=== PATIENT | male | born 1935 | race Caucasian/White ===

== ENCOUNTER 2018-05-30 03:35 | Emergency (ER) | payer MEDICARE, BC ==
[~2018-05-30] VITALS: Ht 180.3 cm; Wt 77.1 kg
[~2018-05-30 03:35] MED LIST: ADVAIR; NEXIUM; SPIRIVA; Z.0.ADVAIR 100-501 E; Z.0.NEXIUM40 M1; Z.0.PROSCAR5 MG PO
--- OUTSIDE RECORDS SUMMARY | 2018-05-30 03:39 | XMS REPORT | Summary of Care ---
Author Organization Unknown Address Unknown Phone Unavailable Encounter Dates Location Diagnoses Discharge Providers Disposition 08/28/2013 [facility] Chente Cortez [facility] Gary Morton 08/28/2013 [id number] [address] Reason for Visit PROSTATE CANCER Problem List No data available for this section Allergies, Adverse Reactions, Alerts Status Substance Reaction Severity Active NKDA Medications No data available for this section Medications Administered During Your Visit No data available for this section Immunizations Vaccine Date Refusal Reason pneumococcal 23-valent vaccine1 04/19/2009 pneumococcal 23-valent vaccine 04/19/2009 1Result Comment: previously given at 1221, duplicate order
--- OUTSIDE RECORDS SUMMARY | 2018-05-30 03:39 | XMS REPORT | Continuity of Care Document ---
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 07/08/2013 [facility] [place] 591 - HYDRONEPHROSIS Active 10/24/[facility] NEOPL [facility]OSTATE Active [facility] Medications Medication Details Route Status Patient Instructions Ordering Provider Order Date Source pneumococcal 23-valent vaccine 0.5 ml, Route: IM, Start date: 04/19/09 9:00:00 IM No Longer Active SYSTEM [facility]19/2009 [facility] Allergies, Adverse Reactions, Alerts Substance Category Reaction Severity Reaction type Status Date Reported Comments Source Immunizations Immunization Date Given Site Status Last Updated Comments Source pneumococcal 23-valent vaccine<sup>1</sup> 04/19/2009 Not Given Hail 1Result Comment: previously given at 1221, duplicate order [facility]ent [facility]<sup>1</sup> 04/19/2009 Not Given Hail 1Result Comment: previously given at 1221, duplicate order [facility] pneumococcal 23-valent vaccine 04/19/2009 completed Hail [facility]-valent [facility] 04/19/2009 Left Arm completed Hail [facility], MICHAEL Ramos Results Order Name Results Value Reference Range Date Interpretation Comments Source Spine lumbar 2 or 3 views DX Spine lumbar 2 or 3 views DX EXAM: Spine lumbar 2 or 3 views DX HISTORY: - low back pain COMPARISON: None AP and lateral views of the lumbar spine. FINDINGS: There is slight anterior wedging of L1 and L2. Minimal retrolisthesis of L4 on L5, L2 on L3 and L3 on L4. Prominent lateral osteophyte formation at L2-3. Prominent anterior osteophyte formation at L4-5 with smaller osteophytes elsewhere. Mild lumbosacral facet arthropathy. IMPRESSION: Degenerative change of the lumbar spine as described above. Slight L1 and L2 anterior vertebral body height loss. 02/06/2018 - - Read by: Kraig Genao MD Dictated Date/time: 02/06/18 13:39 Electronically Signed by: Kraig Genao MD 02/06/18 13:43 FINAL REPORT MICHAEL Ramos Abdomen complete US Abdomen complete US EXAM: Abdomen ultrasound. CLINICAL HX: R10.11 Right upper quadrant pain - R10.11 Right upper quadrant pain. Age: 81 years. Gender: Male. TECHNIQUE: Grayscale and Doppler sonogram of the abdomen. COMPARISON: Renal ultrasound: 05/03/2012. FINDINGS: Midline structures: -- Pancreas: Visualized portion is unremarkable. -- Aorta: Atherosclerosis. -- IVC: Visualized portion is unremarkable. Liver: -- Parenchyma: Homogenous echotexture. -- Length: 13.1 cm. -- Other: None. Main portal vein: -- Diameter: 0.9 cm. -- Flow: Normal directional flow. Gallbladder: -- Intraluminal gallstones: Negative. -- Wall: No thickening. -- Sonographic Mott sign: Negative. -- Other: None. Common bile duct: -- Diameter: 0.4 cm. Right kidney: -- Length: 8.9 cm. -- Hydronephrosis: Negative. -- Other: None. Left kidney: -- Length: 9 cm. -- Hydronephrosis: Negative. -- Other: None. Spleen: -- Measures 9.4 cm. -- Other: None. Other: Mildly limited due to patient's body habitus, per technologist notes. IMPRESSION: 1. Unremarkable abdominal ultrasound. 04/14/2017 - - Read by: Miles Weinberg MD Dictated Date/time: 04/14/17 11:21 Electronically Signed by: Miles Weinberg MD 04/14/17 13:57 FINAL REPORT MICHAEL Ramos Vital Signs Vital Sign Value Date Comments Source Encounters Location Location Details Encounter Type Encounter Number Reason For Visit Attending Provider ADM Date DC Date Status Source [facility] Outpatient [id number] PROSTATE CANCER JUANITORIVKA LAMB 08/24/2011 Active [facility] Outpatient [id number] PROSTATE CANCER JUANITO LAMB 08/22/2012 08/22/2012 Active [facility] Outpatient [id number] _[id number] Gary Morton 08/28/2013 08/29/2013 [facility] [place] [facility] [id number] Gopi James 04/14/2017 04/15/2017 [facility] [place] [id number] 591 - HYDRONEPHROSIS GARY MORTON Cancel [facility] [place] Procedures Procedure Code Date Perfomer Comments Source
--- OUTSIDE RECORDS SUMMARY | 2018-05-30 03:39 | XMS REPORT | CCD ---
Author Author Auto Generated Organization [facility] Address Unknown Phone Unavailable Care Team Providers Care Arresting Gear Operator Name Role Phone Gary Morton RP Chente Cortez CP Allergies, Adverse Reactions, Alerts Substance Reaction Status NKDA Active Medications Medication Instructions Start Date End Date Status pneumococcal 0.5 ml, Route: IM, Start date: 04/19/2009 04/19/2009 Completed 23-valent vaccine 04/19/09 9:00:00 pneumococcal 0.5 ml, Route: IM, Drug Form: INJ, 04/19/2009 04/19/2009 Discontinued 23-valent vaccine ONCALL, Start date: 04/19/09 9:00:00, Duration: 1 doses or times Immunizations Vaccine Date Status pneumococcal 23-valent vaccine 04/19/2009 Auth (Verified) pneumococcal 23-valent vaccine1 04/19/2009 Not Done 1Result Comment: previously given at 1221, duplicate order
--- OUTSIDE RECORDS SUMMARY | 2018-05-30 03:39 | XMS REPORT | CCD ---
Author Author Auto Generated Organization [facility] [place] Address Unknown Phone Unavailable Care Team Providers Care Senior Digital Designer Name Role Phone Gary Morton CP Allergies, Adverse Reactions, Alerts Substance Reaction [...]
--- OUTSIDE RECORDS SUMMARY | 2018-05-30 03:39 | XMS REPORT | CCD ---
Author Author Auto Generated Organization [facility] [place] Address Unknown Phone Unavailable Care Team Providers Care Paper Coater Name Role Phone Gary Morton CP Allergies, [...]
--- OUTSIDE RECORDS SUMMARY | 2018-05-30 03:39 | XMS REPORT | Summary of Care ---
Author Author [facility] [place] Organization [facility] [place] Address Unknown Phone Unavailable Encounter HQ Encntr_alicachorro(FIN) [id number] Date(s): 04/14/17 - 04/14/17 [facility] [place] [address] [place] [phone] Discharge Disposition: Home or Self Care Attending Physician: Gopi Carrasco MD Vital Signs No data available for this section Problem List No data available for this section Allergies, Adverse Reactions, Alerts Substance Reaction Severity Status NKDA Active Medications No data available for this section Results No data available for this section Immunizations Given and Recorded Vaccine Date Status Refusal Reason pneumococcal 23-valent vaccine 04/19/09 Given Procedures No data available for this section Social History No data available for this section Assessment and Plan No data available for this section
[2018-05-30 04:01] LABS: BASOPHILS # (AUTO) 0.1 (0.0-0.1); BASOPHILS % 0.9 % (0.0-1.0); EOSINOPHILS # (AUTO) 0.5 (0.0-0.4); LYMPHOCYTES # (AUTO) 1.6 (1.0-3.2); MEAN CORPUSCULAR HEMOGLOBIN 30.2 pg (28-32); MEAN CORPUSCULAR HGB CONC 32.4 g/dL (31-35); MONOCYTES # (AUTO) 0.4 (0.2-0.8); MONOCYTES % 6.6 % (4.4-11.3); NEUTROPHILS # (AUTO) 3.8 (2.1-6.9); NEUTROPHILS % 58.6 % (38.7-80.0); PLATELET COUNT 266 x10e3/uL (140-360); RED BLOOD COUNT 3.98 x10e6/uL (4.3-5.7)
[2018-05-30 04:08] LABS: INR 0.85; PROTHROMBIN TIME 12.4 seconds (11.9-14.5)
[2018-05-30 04:09] LABS: PARTIAL THROMBOPLASTIN TIME 30.4 seconds (23.8-35.5)
[2018-05-30 04:19] LABS: ALBUMIN 3.6 g/dL (3.5-5.0); ALBUMIN/GLOBULIN RATIO 1.2 (0.8-2.0); ANION GAP 16.2 mmol/L (8-16); CALCIUM 9.5 mg/dL (8.4-10.2); CREATININE, SERUM 2.34 mg/dL (0.72-1.25); POTASSIUM 4.2 mmol/L (3.5-5.1)
[2018-05-30 04:25] LABS: CLARITY,URINE CLOUDY (CLEAR); COLOR,URINE YELLOW (YELLOW); LEUKOCYTE ESTERASE ,URINE 2+ (NEGATIVE)
[2018-05-30 04:26] LABS: BILIRUBIN,URINE NEGATIVE (NEGATIVE); KETONES,URINE NEGATIVE (NEGATIVE); NITRITE,URINE POSITIVE (NEGATIVE); PROTEIN,URINE DIPSTICK 2+ (NEGATIVE); URINE UROBILINOGEN 0.2 mg/dL (0.2 - 1)
[2018-05-30] MEDS ORDERED: DETROL LA4 MG PO (04:31)
[2018-05-30] MEDS ORDERED: FUROSEMIDE20 MG PO (04:31)
[2018-05-30] MEDS ORDERED: ADVAIR 100-501 EACH INH (04:31)
[2018-05-30] MEDS ORDERED: PROAIR HFA INH8.5 GM INH (04:31)
[2018-05-30] MEDS ORDERED: LISINOPRIL-HCT1 EACH PO (04:31)
[2018-05-30 04:36] LABS: BACTERIA,URINE MODERATE /HPF; EPITHELIAL CELLS,URINE FEW /LPF; MUCUS,URINE MODERATE (RARE); RBC,URINE >50 /HPF (0-5); WBC,URINE (MAN) 21-50 /HPF (0-5)
== END 2018-05-30 05:20 | disposition home or self-care (01) ==
LOC: ER 03:35
DX: T83.518A Infection and inflammatory reaction due to other urinary catheter, initial encounter (principal); N30.01 Acute cystitis with hematuria; B96.20 Unspecified Escherichia coli [E. coli] as the cause of diseases classified elsewhere; B95.2 Enterococcus as the cause of diseases classified elsewhere; I12.9 Hypertensive chronic kidney disease with stage 1 through stage 4 chronic kidney disease, or unspecified chronic kidney disease; N18.9 Chronic kidney disease, unspecified; N40.1 Benign prostatic hyperplasia with lower urinary tract symptoms; R33.8 Other retention of urine
CPT/HCPCS: 36415; 80053; 81001; 85025; 85610; 85730; 87086; 87186; 99283

== ENCOUNTER 2020-04-12 08:44 | Emergency (ER) | payer MEDICARE, BC ==
[~2020-04-12] VITALS: Ht 180.3 cm; Wt 61.2 kg
[~2020-04-12 08:44] MED LIST changes: +ADVAIR 100-501 EACH INH; +DETROL LA4 MG PO; +FUROSEMIDE20 MG PO; +LISINOPRIL-HCT1 EACH PO; +PROAIR HFA INH8.5 GM INH
[2020-04-12 09:21] LABS: BASOPHILS # (AUTO) 0.1 (0.0-0.1); BASOPHILS % 1.2 % (0.0-1.0); EOSINOPHILS # (AUTO) 0.4 (0.0-0.4); EOSINOPHILS % 6.5 % (0.0-6.0); HEMATOCRIT 36.6 % (38.2-49.6); HEMOGLOBIN 11.9 g/dL (14.0-18.0); LYMPHOCYTES # (AUTO) 1.3 (1.0-3.2); LYMPHOCYTES % 19.4 % (18.0-39.1); MEAN CORPUSCULAR HEMOGLOBIN 30.2 pg (28-32); MEAN CORPUSCULAR HGB CONC 32.5 g/dL (31-35); MEAN CORPUSCULAR VOLUME 92.9 fL (81-99); MONOCYTES # (AUTO) 0.5 (0.2-0.8); MONOCYTES % 7.4 % (4.4-11.3); NEUTROPHILS # (AUTO) 4.3 (2.1-6.9); NEUTROPHILS % 64.3 % (38.7-80.0); PLATELET COUNT 260 x10e3/uL (140-360); RED BLOOD COUNT 3.94 x10e6/uL (4.3-5.7)
--- NOTE | 2020-04-12 09:23 | Emergency Department Note ---
History of Present Illnes History of Present Illness Chief Complaint: Genitourinary History of Present Illness This is a 84 year old male arrives to the ED with complaints of he maturia with blood in the Hernandez bag noted by . Patient has a chronic indwelling Hernandez secondary to prostate cancer for the past 13 years. states patient missed his last appointment to change his Hernandez catheter with his urologist.. Denies dysuria or recent UTI. Denies blunt trauma to abdomen or genitals. No urethral instrumentation. No colicky flank pain and no history of kidney stones. No other bleeding sources or bruising. No NSAID use or sickle cell disease. No receptive rectal sex or rectal instrumentation. Nonsmoker. Prostate cancer history. Historian: Patient, Family Member Arrival Mode: Car Onset (how long ago): minute(s) Radiation: Reports non-radiation Severity: mild Onset quality: sudden Chronicity: recurrent Context: Denies recent illness, Denies recent immobilization, Denies trauma/injury, Denies new medications Exacerbating factors: none Associated symptoms: Reports denies other symptoms Treatments prior to arrival: none Past Medical/Family History Physician Review I have reviewed the patient's past medical and family history. Any updates have been documented here. Past Medical History Recent Fever: No Clinical Suspicion of Infectio: No New/Unexplained Change in Ment: No Past Medical History: Hypertension, Chronic Kidney Disease Other Medical History: URINARY RETENTION Other Surgery: hernia surgery X2 Review of Systems Review of Systems Constitutional: Reports no symptoms EENTM: Reports no symptoms Cardiovascular: Reports no symptoms Respiratory: Reports no symptoms Gastrointestinal: Reports no symptoms Genitourinary: Reports as per HPI, Reports hematuria Musculoskeletal: Reports no symptoms Integumentary: Reports no symptoms Neurological: Reports no symptoms Psychological: Reports no symptoms Endocrine: Reports no symptoms Hematological/Lymphatic: Reports no symptoms Physical Exam Related Data Allergies: Coded Allergies: levofloxacin (Verified Allergy, Mild, RASH,MUSCLE ATROPHY, 03/04/11) Triage Vital Signs Vital Signs Date Time Temp Pulse Resp B/P (MAP) Pulse Ox O2 Delivery O2 Flow Rate FiO2 04/12/20 08:56 76 18 151/72 100 Room Air Vital signs reviewed: Yes (0) Physical Exam CONSTITUTIONAL Constitutional: Present well-developed, Present well-nourished HENT HENT: Present normocephalic, Present atraumatic, Present oropharynx clear/moist, Present nose normal HENT L/R: Present left ext ear normal, Present right ext ear normal EYES Eyes: Reports PERRL, Reports conjunctivae normal NECK Neck: Present ROM normal PULMONARY Pulmonary: Present effort normal, Present breath sounds normal CARDIOVASCULAR Cardiovascular: Present regular rhythm, Present heart sounds normal, Present capillary refill normal, Present normal rate GASTROINTESTINAL Abdominal: Present soft, Present nontender, Present bowel sounds normal GENITOURINARY Genitourinary: Present exam deferred SKIN Skin: Present warm, Present dry MUSCULOSKELETAL Musculoskeletal: Present ROM normal NEUROLOGICAL Neurological: Present alert, Present oriented x 3, Present no gross motor or sensory deficits PSYCHOLOGICAL Psychological: Present mood/affect normal, Present judgement normal Results Laboratory Lab results reviewed: Yes Laboratory comments Laboratory Tests Test 04/12/20 09:44 04/12/20 09:15 Urine Color Yellow (YELLOW) Urine Clarity Sl cloudy (CLEAR) Urine pH 5.5 (5 - 7) Urine Specific [place] 1.020 (1.010-1.025) Urine Protein 2+ (NEGATIVE) Urine Glucose (UA) Negative (NEGATIVE) Urine Ketones Negative (NEGATIVE) Urine Blood Large (NEGATIVE) Urine Nitrite Positive (NEGATIVE) Urine Bilirubin Negative (NEGATIVE) Urine Urobilinogen 0.2 mg/dL (0.2 - 1) Urine Leukocyte Esterase Small (NEGATIVE) White Blood Count 6.75 x10e3/uL (4.8-10.8) Red Blood Count 3.94 x10e6/uL (4.3-5.7) Hemoglobin 11.9 g/dL (14.0-18.0) Hematocrit 36.6 % (38.2-49.6) Mean Corpuscular Volume 92.9 fL (81-99) Mean Corpuscular Hemoglobin 30.2 pg (28-32) Mean Corpuscular Hemoglobin Concent 32.5 g/dL (31-35) Red Cell Distribution Width 13.0 % (11.7-14.4) Platelet Count 260 x10e3/uL (140-360) Neutrophils (%) (Auto) 64.3 % (38.7-80.0) Lymphocytes (%) (Auto) 19.4 % (18.0-39.1) Monocytes (%) (Auto) 7.4 % (4.4-11.3) Eosinophils (%) (Auto) 6.5 % (0.0-6.0) Basophils (%) (Auto) 1.2 % (0.0-1.0) Neutrophils # (Auto) 4.3 (2.1-6.9) Lymphocytes # (Auto) 1.3 (1.0-3.2) Monocytes # (Auto) 0.5 (0.2-0.8) Eosinophils # (Auto) 0.4 (0.0-0.4) Basophils # (Auto) 0.1 (0.0-0.1) Absolute Immature Granulocyte (auto 0.08 x10e3/uL (0-0.1) Sodium Level 138 mmol/L (136-145) Potassium Level 4.4 mmol/L (3.5-5.1) Chloride Level 105 mmol/L (98-107) Carbon Dioxide Level 25 mmol/L (22-29) Anion Gap 12.4 mmol/L (8-16) Blood Urea Nitrogen 46 mg/dL (7-26) Creatinine 1.88 mg/dL (0.72-1.25) Estimat Glomerular Filtration Rate 34 ML/MIN (60-) BUN/Creatinine Ratio 24 (6-25) Glucose Level 105 mg/dL (74-118) Calcium Level 9.6 mg/dL (8.4-10.2) Total Bilirubin 0.4 mg/dL (0.2-1.2) Aspartate Amino Transf (AST/SGOT) 14 IU/L (5-34) Alanine Aminotransferase (ALT/SGPT) 13 IU/L (0-55) Alkaline Phosphatase 54 IU/L (40-150) Creatine Kinase 22 IU/L (30-200) Total Protein 6.2 g/dL (6.5-8.1) Albumin 3.4 g/dL (3.5-5.0) Globulin 2.8 g/dL (2.3-3.5) Albumin/Globulin Ratio 1.2 (0.8-2.0) Assessment & Plan Medical Decision Making MDM Hematuria likely secondary to underlying history of prostate cancer and BPH Workup: UA, CBC, CMP Findings: UA with concerns of infection, urine culture sent, one dose of Rocephin given the ED. VSS and patient in NAD, afebrile. Patients history, exam, and studies ordered are not consistent with kidney stone, urethral or intra-abdominal trauma, drug reaction, coagulopathy, Given a history of chronic indwelling Hernandez, there is a suspicion for prostatitis or other serious bacterial infection and as a result and Evoxac given in the ER. Case was discussed at length with Dr. Morton patient's urologist who was in agreement with discharge home on Keflex for 10 days.. Disposition: Discharge home. Discussed BPH management, UTI and urology follow up for possible cancer risk-factor discussion/workup. Assessment & Plan Final Impression: (1) Hematuria Depart Disposition: HOME, SELF-CARE Last Vital Signs Date Time Temp Pulse Resp B/P (MAP) Pulse Ox O2 Delivery O2 Flow Rate FiO2 04/12/20 08:56 76 18 151/72 100 Room Air Home Meds Active Scripts Cephalexin Monohydrate (KEFLEX) 500 Mg Capsule, 500 MG PO Q6H, #40 TAB 0 Refills Prov:ABRAHAM RUSS DO 04/12/20 Reported Medications Tolterodine Tartrate (DETROL LA) 4 Mg Cap.er.24h, 4 MG PO DAILY 05/30/18 Furosemide (FUROSEMIDE) 20 Mg Tablet, 20 MG PO Q72HR 05/30/18 Fluticasone/Salmeterol (ADVAIR 100-50 DISKUS) 1 Each Disk.w.dev, 1 DOSE INH BID 05/30/18 Albuterol Sulf* (PROAIR HFA INHALER*) 8.5 Gm Inh, 2 DOSE INH Q6HR PRN for SHORTNESS OF BREATH 05/30/18 Lisinopril/Hydrochlorothiazide (LISINOPRIL-HCTZ 20-12.5 MG TAB) 1 Each Tablet, 1 TAB PO DAILY 05/30/18 ABRAHAM RUSS DO Apr 12, 2020 09:23
[2020-04-12 09:38] LABS: ALBUMIN 3.4 g/dL (3.5-5.0); ALBUMIN/GLOBULIN RATIO 1.2 (0.8-2.0); ANION GAP 12.4 mmol/L (8-16); CALCIUM 9.6 mg/dL (8.4-10.2); CREATININE, SERUM 1.88 mg/dL (0.72-1.25); POTASSIUM 4.4 mmol/L (3.5-5.1)
--- OUTSIDE RECORDS SUMMARY | 2020-04-12 09:40 | XMS REPORT | Continuity of Care Document ---
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.54 - NEUROGENIC BLAD [facility] - HYDRONEPHROSIS Active 10/24/2011 [facility] [place] Spondylosis without myelopathy or radicu lopathy, lumbar region 08/26/2018 [facility] [place] Osteophyte, vertebrae 08/26/2018 [facility] [place] MALIGN NEOPL PROSTATE Active [facility] Medications Medication Details Route Status Patient Instructions Ordering Provider Order Date Source pneumococcal 23-valent vaccine 0.5 ml, Route: IM, Start date: 04/19/09 9:00:00 IM No Longer Active SYSTEM 04/19/2009 CHRISTIAN [place] Allergies, Adverse Reactions, Alerts Substance Category Reaction Severity Reaction type Status Date Reported Comments Source No Known Medication Allergies Assertion Drug aller gy MICHAEL [place] Immunizations Immunization Date Given Site Status Last Updated Comments Source pneumococcal 23-valent vaccine<sup>1</sup> 04/19/2009 Not Given Hail 1Result Comment: previously given at 122 1, duplicate order CHRISTIAN [place] pneumococcal 23-valent vaccine<sup>1</sup> 04/19/2009 Not Given Hail 1Result Comment: previously given at 122 1, duplicate order [facility] pneumococcal 23-valent vaccine 04/19/2009 completed H ail [facility]IAN [place] pneumococcal 23-valent vaccine 04/19/2009 Left Arm completed Hail MICHAEL [place],[facility] [place] Results No Data Provided for This Section Pathology Reports No Data Provided for This Section Diagnostic Reports Report Value Date Source Ribs unilateral 3 views w PA chest DX EXAM: XR LEFT RIB 2 VIEWS AND PA CHEST DATE: 03/27/2020 11:48 CDT INDICATION: - rib contusion COMPARISON: None. TECHNIQUE: PA chest; Frontal and oblique views of the ribs FINDINGS: No displaced rib fracture or other acute bony abnormality is identified. The lungs are clear without pneumothorax. The heart size is within normal limits. IMPRESSION: No acute abnormality. 03/27/2020 [facility] Brain wo contrast MRI Brain wo contrast MRI 01/21/2020 11:06 CDT Clinical Indication: - R41.3 Other amnesia; Comparison: None TECHNIQUE: Multiplanar noncontrast MRI of the brain is performed. No intravenous gadolinium was given. FINDINGS: BRAIN: No restricted diffusion is identified. Moderate white matter FLAIR and T2-weighted signal abnormalities are seen, likely due to microvascular ischemia. Minimal pontine microvascular ischemia is present. Moderate generalized cerebral atrophy is seen. There is no extra-axial fluid collection or intraparenchymal hemorrhage. CEREBELLOPONTINE REGIONS, SELLA, AND SKULL: The cerebellopontine angles appear unremarkable. No skull abnormality is seen. The pituitary gland appears unremarkable. VENTRICLES: The ventricles and sulci are normal in size and configuration for age. VISUALIZED VESSELS: Major intracranial flow voids are preserved. ORBITS, VISUALIZED PARANASAL SINUSES/MASTOIDS/CERVICAL SPINE: Mild paranasal mucosal thickening is present. The mastoid air cells are clear. No orbital pathology is seen. IMPRESSION: 1. No acute intracranial abnormality. 2. Moderate chronic microvascular ischem ia. 3. Moderate generalized cerebral atrophy . 01/21/2020 MICHAEL [place] Spine lumbar 2 or 3 views DX E XAM: Spine lumbar 2 or 3 views DX [...] L2 anterior vertebral body height loss. 02/06/2018 [facility] [place] Abdomen complete US EXAM: Abdomen ultrasound. CLINICAL HX: R10.11 Right upper quadrant pain - R10.11 Right upper quadrant pain. Age: 81 years. Gender: Male. TECHNIQUE: Grayscale and Doppler sonogram of the abdomen. COMPARISON: Renal ultrasound: 05/03/2012. FINDINGS: Midline structures: -- Pancreas: Visualized portion is unre markable. -- Aorta: Atherosclerosis. -- IVC: Visualized portion is unremarka ble. Liver: -- Parenchyma: Homogenous echotexture. -- Length: [...] notes. IMPRESSION: 1. Unremarkable abdominal ultrasound. 04/14/2017 MICHAEL Ramos Consultation Notes No Data Provided for This Section Discharge Summaries No Data Provided for This Section History and Physicals No Data Provided for This Section Vital Signs No Data Provided for This Section Encounters Location Location Details Encounter Type Encounter Number Reason For Visit Attending Provider ADM Date DC Date Status Source [facility] [id number] [facility] [id number] PROSTATE CANCER [facility] 08/22/2012 08/22/2012 Active [facility] Outpatient [id number] _[id number] Gary Morton 08/28/2013 08/29/2013 [facility] [place] [facility] [id number] Gopi James 04/14/2017 04/15/2017 [facility] [place] [facility] [place] [facility] [id number] Gopi James 02/06/2018 02/07/2018 [facility] [place] [facility] [place] [facility] [id number] 07 Florencia Basshelen 01/21/2020 01/22/2020 [facility] [place] [facility] [place] [facility] [id number] Grecia Du 03/27/2020 03/28/2020 [facility] [place] [id number] 591 - HYDRONEPHROSIS GARY Londoncel [facility] [place] Procedures No Data Provided for This Section Assessment and Plan No Data Provided for This Section Plan of Care No Data Provided for This Section Social History Social History Date Source Social History TypeResponse 03/28/2020 [facility] [place] No data available for this section 01/22/2020 [facility] [place] Family History No Data Provided for This Section Advance Directives No Data Provided for This Section Functional Status No Data Provided for This Section
--- OUTSIDE RECORDS SUMMARY | 2020-04-12 09:40 | XMS REPORT | Continuity of Care Document ---
Author Author [facility] t Organization [facility] Address [address] [place] [address] Phone Unavailable Care Team Providers Care Hebrew Professor Name Role Phone NONSTAFF PCP Unavailable Raza Du Attphys Joyce Purcell Attphys Marky Carrasco Attphys [phone] Danny Cortez Attphys Payers Payer Name Policy Type Policy Number Effective Date Expiration Date S ource Medicare A & B [id number] 2000 00:00:00 C HI [facility] [employer] [place] Hmo [id number] CH I [facility] Problems Condition Name Condition Details Condition Category Status Onset Date Resolution Date Last Treatment Date Treating Clinician Comments Source Nodular basal cell carcinoma of skin Nodular Basal Cell Carc inoma of Skin Problem Active 2019-10-04 00:00:00 [facility] Senile purpura Senile Purpura Problem Active 2019-05-22 00:00:00 [facility] Peripheral vascular disease Peripheral Vascular Disease Problem Active 2019-05-22 00:00:00 [facility] Chronic kidney disease stage 3 Chronic Kidney Disease Stage 3 Probl em Active 2019-05-22 00:00:00 [facility] Hyperparathyroidism due to renal insufficiency Hyperpa rathyroidism Due to Renal Insufficiency Problem Active 2018-11-21 00:00:00 [facility] M54.5 - LOW BACK PAIN M54. 5 - LOW BACK PAIN Active 02/06/2018 [facility] [place] Diagnosis Active 2018-02-06 00:01:00 2018-02-06 10:52:00 Rowan Zepeda R10.11 - RIGHT UPPER QUADRANT PAIN R10.11 - RIGHT UPPER QUADRANT PAIN Active 03/31/2017 [facility] [place] Diagnosis Active 2017-03-31 00:01:00 2017-05-11 11:48:00 Rowan Zepeda History of malignant neoplasm of prostate History of M alignant Neoplasm of Prostate Problem Active 2016-08-03 00:00:00 [facility] Chronic obstructive lung disease Chronic Obstructive Lung Diseas e Problem Active 2016-06-30 00:00:00 [facility]re[facility] Hypertensive disorder Hypertensive Disorder Problem Active 11-12-09 00:00:00 [facility] ractice PROSTATE CANCER PROS GOMEZ CANCER Active 08/03/2013 [facility] Diagnosis Active 2013-08-03 08:00:00 2013-08-28 10:33:00 [facility] [place] 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, lumbar region 08/26/2018 [facility] [place] Problem 2018-08-26 14:11:03 Rowan Zepeda Osteophyte, vertebrae Oste ophyte, vertebrae 08/26/2018 [facility] [place] Problem 2018-08-26 14:11:03 [facility] [place] 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 [facility] Active 2013-08-28 10:33:00 Oh wilmer Zepeda Low back pain Low back pain 02/13/2018 08/26/2018 [facility] [place] Problem 2018-02-13 04:41:45 2018-08-26 14:11:03 2018-08-26 14:11:03 Rowan Zepeda Allergies, Adverse Reactions, Alerts Allergy Name Allergy Type Status Severity Reaction(s) Onset Date Inacti ve Date Treating Clinician Comments Source Levofloxacin Allergy to Substance Active Mild RASH,MUSCLE A TROPHY 2011-03-04 00:00:00 [facility] Levaquin Allergy to substance Active [facility] No Known Medication Allergies No Known Medication Allergies Active Rowan Zepeda Social History Social Habit Start Date Stop Date Quantity Comments Source Social History 2020-01-22 04:59:00 2020-01-22 04:59:00 Rowan Zepeda Smoking Status Start Date Stop Date Source Former Smoker [facility] P alley Medications Ordered Medication Name Filled Medication Name Start Date Stop Da te Current Medication? Ordering Clinician Indication Dosage Frequency Signature (SIG) Comments Components Source pneumococcal 23-valent vaccine 2009-04-19 15:00:00 No S YSTEM SYSTEM 0.5 ml, Route: IM, Start date: 04/19/09 9:00:00 Rowan Zepeda Albuterol Sulfate (Proair Hfa Inhaler*) 8.5 Gm Inh Alb uterol Sulfate (Proair Hfa Inhaler*) 8.5 Gm Inh Yes 2 Merary ry 6 Hours as needed for Shortness Of Breath [facility] Fluticasone/Salmeterol (Advair 100-50 Diskus) 1 Each D isk.w.dev Fluticasone/Salmeterol (Advair 100-50 Diskus) 1 Each Disk.w.dev Yes 1 Twice A Day [facility] Furosemide 20 Mg Tablet Furosemide 20 Mg Tablet Yes 20 Q72hr [facility] Lisinopril/Hydrochlorothiazide (Lisinopril-Hctz 20-12. 5 Mg Tab) 1 Each Tablet Lisinopril/Hydrochlorothiazide (Lisinopril-Hctz 20-12.5 Mg Tab) 1 Each Tablet Yes 1 Daily [facility] Tolterodine Tartrate (Detrol La) 4 Mg Cap.er.24h Tolte rodine Tartrate (Detrol La) 4 Mg Cap.er.24h Yes 4 Daily [facility] cephalexin 500 mg capsule Take 1 capsule twice a day b y oral route for 7 days. cephalexin 500 mg capsule Take 1 capsule twice a day by oral route for 7 days. No 1capsule(s) BID cephalex in 500 mg capsule Take 1 capsule twice a day by oral route for 7 days. [facility] Pr actice furosemide 20 mg tablet TAKE 1 TABLET BY MOUTH EVERY 7 2 HOURS DIRECTED furosemide 20 mg tablet TAKE 1 TABLET BY MOUTH EVERY 72 HOURS DIRECTED No furosemide 20 m g tablet TAKE 1 TABLET BY MOUTH EVERY 72 HOURS DIRECTED [facility] lisinopril 20 mg-hydrochlorothiazide 12. 5 mg tablet TAKE 1 TABLET BY MOUTH DAILY lisinopril 20 mg-hydrochlorothiazide 12. 5 mg tablet TAKE 1 TABLET BY MOUTH DAILY No lisinopril 20 mg -hydrochlorothiazide 12.5 mg tablet TAKE 1 TABLET BY MOUTH DAILY [facility] ProAir HFA 90 mcg/actuation aerosol inha ler Inhale 2 puffs every 6-8 hours by inhalation route as needed for 30 days. ProAir HFA 90 mcg/actuation aerosol inhaler Inhale 2 puffs every 6-8 hours by inhalation route as needed for 30 days. No ProAir HFA 90 mc g/actuation aerosol inhaler Inhale 2 puffs every 6-8 hours by inhalation route as needed for 30 days. [facility] tolterodine ER 4 mg capsule,extended release 24 hr QD tolterodine ER 4 mg capsule,extended release 24 hr QD No tolterodine ER 4 mg capsule,extended release 24 hr QD [facility] Inhub 100 mcg-50 mcg/dose powder for inhalation Inhale 1 puff twice a day by inhalation route for 30 days. [facility] Inhub 100 mcg-50 mcg/dose powder for inhalation Inhale 1 puff twice a day by inhalation route for 30 days. No [facility] Inhub 100 mcg -50 mcg/dose powder for inhalation Inhale 1 puff twice a day by inhalation route for 30 days. [facility] Immunizations Ordered Immunization Name Filled Immunization Name Date Status Comments Source influenza, high dose seasonal influenza, high dose seasonal 2018 00:00:00 Completed [facility] influenza, unspecified formulation influenza, unspecified fo rmulation 2018-03-05 00:00:00 Completed [facility] ice Tdap Tdap 2017-11-03 00:00:00 Completed [facility] zoster live zoster live 2016-08-03 10:44:41 Completed [facility] influenza, high dose seasonal influenza, high dose seasonal 2015 16:43:00 Completed [facility] pneumococcal conjugate PCV 13 pneumococcal conjugate PCV 13 2015 13:41:11 Completed [facility] pneumococcal, unspecified formulation pneumococcal, unspecif ied formulation 2009-04-19 00:00:00 Completed [facility] ice pneumococcal polysaccharide PPV23 pneumococcal polysaccharid e PPV23 2009-04-19 00:00:00 Completed [facility] ice pneumococcal, unspecified formulation pneumococcal, unspecif ied formulation 2009-04-19 00:00:00 Completed [facility] Pract ice pneumococcal polysaccharide PPV23 pneumococcal polysaccharid e PPV23 2009-04-19 00:00:00 Completed [facility] ice Vital Signs Vital Name Observation Time Observation Value Comments Source BP Diastolic 2019-10-30 00:00:00 76 mm[Hg] [facility] Height 2019-10-30 00:00:00 67.6 [in_i] [facility] BMI (Body Mass Index) 2019-10-30 00:00:00 22.3 kg/m2 [facility] BP Systolic 2019-10-30 00:00:00 142 mm[Hg] [facility] Body Weight 2019-10-30 00:00:00 145 [lb_av] [facility] Height 2019-10-04 00:00:00 67.6 [in_i] [facility] BP Diastolic 2019-05-23 00:00:00 72 mm[Hg] [facility] Height 2019-05-23 00:00:00 67.6 [in_i] [facility] BMI (Body Mass Index) 2019-05-23 00:00:00 23.2 kg/m2 [facility] BP Systolic 2019-05-23 00:00:00 130 mm[Hg] [facility] Body Weight 2019-05-23 00:00:00 151 [lb_av] [facility] BP Diastolic 2019-03-01 00:00:00 68 mm[Hg] [facility] Height 2019-03-01 00:00:00 67.6 [in_i] [facility] BMI (Body Mass Index) 2019-03-01 00:00:00 23.7 kg/m2 [facility] BP Systolic 2019-03-01 00:00:00 122 mm[Hg] [facility] Body Weight 2019-03-01 00:00:00 154.2 [lb_av] [facility] BP Diastolic 2019-01-21 00:00:00 62 mm[Hg] [facility] Height 2019-01-21 00:00:00 67.6 [in_i] [facility] BMI (Body Mass Index) 2019-01-21 00:00:00 22.9 kg/m2 [facility] BP Systolic 2019-01-21 00:00:00 112 mm[Hg] [facility] Body Weight 2019-01-21 00:00:00 148.8 [lb_av] [facility] BP Diastolic 2018-11-21 00:00:00 70 mm[Hg] [facility] Height 2018-11-21 00:00:00 67.6 [in_i] [facility] BMI (Body Mass Index) 2018-11-21 00:00:00 22.8 kg/m2 [facility] BP Systolic 2018-11-21 00:00:00 130 mm[Hg] [facility] Body Weight 2018-11-21 00:00:00 148.4 [lb_av] [facility] Procedures Procedure Date / Time Performed Performing Clinician Sour e XR, cervical spine 2019[facility]03[facility]01 [facility] 2014-07-21 00:00:00 [facility] Hernia Repair 2009-06-05 00:00:00 [facility] Encounters Start Date/Time End Date/Time Encounter Type Admission Type Attendi [facility] Facility Care Department Encounter ID Source 2020-03-27 11:48:00 2020-03-27 23:59:00 Outpatient Grecia Robertson MHOIB MHOIB [id number] 2020-01-21 10:42:00 2020-01-21 23:59:00 Outpatient Florencia Washburn MHHOIP MHHOIP [id number] 2019-10-30 00:00:00 2019-10-30 00:00:00 Xin Shah, BUTTING SAW OPERATOR: [address], [address], [place] [address], Ph. [facility] [place] - [facility] - _ADRIANO_Ivan (TOMA) [id number] [facility] Practic e 2019-10-04 00:00:00 2019-10-04 00:00:00 Merlyn Wiggins, BUTTING SAW OPERATOR : [address], [address], [place] [address], Ph. [facility] - _[facility] mcduffie (WAG) [id number] [facility] 2019-05-23 00:00:00 2019-05-23 00:00:00 Julian Rosas MD: [address] [place] [address], Ph. [facility]Alvin [id number] [facility] 2019-03-01 00:00:00 2019-03-01 00:00:00 Gopi hdz MD: [address] [place] [address], Ph. [facility] - P-Alvin [id number] [facility] 2019-01-21 00:00:00 2019-01-21 00:00:00 Gopi hdz MD: [address] [place] [address], Ph. [facility] - P-Alvin [id number] [facility] 2018-11-21 00:00:00 2018-11-21 00:00:00 Gopi hdz MD: [address] [place] [address], Ph. [facility]vin [id number] [facility] 2018-05-30 03:35:00 2018-05-30 05:20:00 Departed Emergency Room [facility] [id number] [facility] 2018-02-06 10:44:00 2018-02-06 23:59:00 [id number] 2017-04-14 09:39:00 2017-04-14 23:59:00 [facility] [id number] 2013-08-28 10:22:00 2013-08-28 23:59:00 Outpatient Mitch Cortez [facility] [id number] Results Test Description Test Time Test Comments Results Result Comments Source Urine WBC 2018-05-30 04:36:00 Test Item Urine WBC (test code = 5821-4) 21-50 0-5 [facility] [id number] 04:36:00* Test Item Value Reference Range Interpretation Comments Urine RBC (test code = 03591-3) >50 0-5 H [facility] [id number] 04:36:00* Test Item Value Reference Range Interpretation Comments Urine Bacteria (test code = 35027-4) MODERATE NONE H [facility] Epithelial [id number] 04:36:00 * Test Item Value Reference Range Interpretation Comments Urine Epithelial Cells (test code = 12430-0) FEW NONE [facility] [id number] 04:36:00* Test Item Value Reference Range Interpretation Comments Urine Mucus (test code = 8247-9) MODERATE RARE H [facility] [id number] 04:26:00* Test Item Value Reference Range Interpretation Comments Urine Color (test code = 5778-6) YELLOW YELLOW [facility] [id number] 04:26:00* Test Item Value Reference Range Interpretation Comments Urine Clarity (test code = 53929-9) CLOUDY CLEAR H [facility] Specific [id number] 04:26:00 * Test Item Value Reference Range Interpretation Comments Urine Specific Altus (test code = 5811-5) 1.015 1.010-1.02 5 [facility] [id number] 04:26:00* Test Item Value Reference Range Interpretation Comments Urine pH (test code = 26480-3) 6 5-7 [facility] Leukocyte [id number] 04:26:00* Test Item Value Reference Range Interpretation Comments Urine Leukocyte Esterase (test code = 5799-2) 2+ NEGATIVE H [facility] [id number] 04:26:00* Test Item Value Reference Range Interpretation Comments Urine Nitrite (test code = 40217-5) POSITIVE NEGATIVE H [facility] [id number] 04:26:00* Test Item Value Reference Range Interpretation Comments Urine Protein (test code = 5804-0) 2+ NEGATIVE H [facility] Glucose (UA)2018-05-30 04:26:00* Test Item Value Reference Range Interpretation Comments Urine Glucose (UA) (test code = 2349-9) NEGATIVE NEGATIVE [facility] [id number] 04:26:00* Test Item Value Reference Range Interpretation Comments Urine Ketones (test code = 24205-2) NEGATIVE NEGATIVE [facility] Cngxzyarnhqy3273-59-50 04:26:00* Test Item Value Reference Range Interpretation Comments Urine Urobilinogen (test code = 72396-1) 0.2 0.2-1 [facility] Fldjiojwt5961-67-57 04:26:00* Test Item Value Reference Range Interpretation Comments Urine Bilirubin (test code = 1978-6) NEGATIVE NEGATIVE [facility] [id number] 04:26:00* Test Item Value Reference Range Interpretation Comments Urine Blood (test code = 13268-3) 4+ NEGATIVE H [facility] Blood [id number] 04:20:00* Test Item Value Reference Range Interpretation Comments White Blood Count (test code = 6690-2) 6.52 4.8-10.8 [facility] Blood [id number] 04:20:00* Test Item Value Reference Range Interpretation Comments Red Blood Count (test code = 789-8) 3.98 4.3-5.7 L [facility]emoglobin2018-12-26 04:20:00* Test Item Value Reference Range Interpretation Comments Hemoglobin (test code = 02397-2) 12.0 14.0-18.0 L [facility]ematocrit2018-12-26 04:20:00* Test Item Value Reference Range Interpretation Comments Hematocrit (test code = 4544-3) 37.0 38.2-49.6 L [facility] Corpuscular Bggbap4314-71-08 04:20:00* Test Item Value Reference Range Interpretation Comments Mean Corpuscular Volume (test code = 787-2) 93.0 81-99 [facility] Corpuscular Vzcbcyekgo9334-04-01 04:20:00* Test Item Value Reference Range Interpretation Comments Mean Corpuscular Hemoglobin (test code = 785-6) 30.2 28-32 [facility] Corpuscular Hemoglobin Concent 2018-05-30 04:20:00* Test Item Value Reference Range Interpretation Comments Mean Corpuscular Hemoglobin Concent (test code = 786-4) 32.4 31-35 [facility] Cell Distribution [id number] 04:20:00* Test Item Value Reference Range Interpretation Comments Red Cell Distribution Width (test code = 60242-6) 13.0 11.7 -14.4 [facility]atelet Uwkxb8989-30-11 04:20:00* Test Item Value Reference Range Interpretation Comments Platelet Count (test code = 777-3) 266 140-360 [facility]Neutrophils (%) (Auto)2018-05-30 04:20:00 * Test Item Value Reference Range Interpretation Comments Neutrophils (%) (Auto) (test code = 15428-6) 58.6 38.7-80.0 [facility]ymphocytes (%) (Auto)2018-05-30 04:20:00 * Test Item Value Reference Range Interpretation Comments Lymphocytes (%) (Auto) (test code = 736-9) 25.0 18.0-39.1 [facility] (%) (Auto)2018-05-30 04:20:00* Test Item Value Reference Range Interpretation Comments Monocytes (%) (Auto) (test code = 5905-5) 6.6 4.4-11.3 [facility]osinophils (%) (Auto)2018-05-30 04:20:00 * Test Item Value Reference Range Interpretation Comments Eosinophils (%) (Auto) (test code = 713-8) 8.0 0.0-6.0 H [facility]ophils (%) (Auto)2018-05-30 04:20:00* Test Item Value Reference Range Interpretation Comments Basophils (%) (Auto) (test code = 706-2) 0.9 0.0-1.0 [facility] SouthIM GRANULOCYTES %2018-05-30 04:20:00* Test Item Value Reference Range Interpretation Comments IM GRANULOCYTES % (test code = IM GRANULOCYTES %) 0.9 0.0- 1.0 [facility]utrophils # (Auto)2018-05-30 04:20:00* Test Item Value Reference Range Interpretation Comments Neutrophils # (Auto) (test code = 751-8) 3.8 2.1-6.9 [facility]ymphocytes # (Auto)2018-05-30 04:20:00* Test Item Value Reference Range Interpretation Comments Lymphocytes # (Auto) (test code = 71376-3) 1.6 1.0-3.2 [facility] # (Auto)2018-05-30 04:20:00* Test Item Value Reference Range Interpretation Comments Monocytes # (Auto) (test code = 742-7) 0.4 0.2-0.8 [facility]osinophils # (Auto)2018-05-30 04:20:00* Test Item Value Reference Range Interpretation Comments Eosinophils # (Auto) (test code = 711-2) 0.5 0.0-0.4 H [facility] # (Auto)2018-05-30 04:20:00* Test Item Value Reference Range Interpretation Comments Basophils # (Auto) (test code = 704-7) 0.1 0.0-0.1 [facility] SouthAbsolute Immature Granulocyte (auto 2018-05-30 04:20:00* Test Item Value Reference Range Interpretation Comments Absolute Immature Granulocyte (auto (ghada t code = Absolute Immature Granulocyte (auto) 0.06 0-0.1 [facility] SouthProthrombin [id number] 04:20:00* Test Item Value Reference Range Interpretation Comments Prothrombin Time (test code = 5902-2) 12.4 11.9-14.5 [facility]Prothromb Time International Ratio 2018-05-30 04:20:00* Test Item Value Reference Range Interpretation Comments Prothromb Time International Ratio (test code = 6301-6) 0.85 Oral Anticoagulant Therapy INR Values:1. Low Intensity Therapy 1.5 - 2.02 . Moderate Intensity Therapy 2.0 - 3.03. High Intensity Therapy(1) 2.5 - 3. 54. High Intensity Therapy(2) 3.0 - 4.05. Panic Value INR > 5.0 [facility] South[facility] Partial Thromboplast Time 2018-05-30 04:20:00* Test Item Value Reference Range Interpretation Comments Activated Partial Thromboplast Time (test code = 78014-9) 30.4 23.8-35.5 [facility] Pimil0880-87-25 04:19:00* Test Item Value Reference Range Interpretation Comments Sodium Level (test code = 2951-2) 138 136-145 [facility]Potassium Iauzj3575-01-27 04:19:00* Test Item Value Reference Range Interpretation Comments Potassium Level (test code = 2823-3) 4.2 3.5-5.1 [facility]Chloride [id number] 04:19:00* Test Item Value Reference Range Interpretation Comments Chloride Level (test code = 2075-0) 104 98-107 [facility] SouthCarbon Dioxide [id number] 04:19:00* Test Item Value Reference Range Interpretation Comments Carbon Dioxide Level (test code = 2028-9) 22 22-29 [facility] SouthAnion [id number] 04:19:00* Test Item Value Reference Range Interpretation Comments Anion Gap (test code = 74051-6) 16.2 8-16 H [facility] SouthBlood Urea [id number] 04:19:00* Test Item Value Reference Range Interpretation Comments Blood Urea Nitrogen (test code = 3094-0) 65 7-26 H [facility] SouthCreatinine2018-12-26 04:19:00* Test Item Value Reference Range Interpretation Comments Creatinine (test code = 2160-0) 2.34 0.72-1.25 H [facility] SouthBUN/Creatinine [id number] 04:19:00* Test Item Value Reference Range Interpretation Comments BUN/Creatinine Ratio (test code = 3097-3) 28 6-25 H [facility] SouthEstimat Glomerular Filtration Rate 2018-05-30 04:19:00* Test Item Value Reference Range Interpretation Comments Estimat Glomerular Filtration Rate (test code = 931634378) 27 >60 L Ranges were taken from the National Kidney Disease Education Program and the [facility] [employer] literature.Reference ranges:60 or greater: Rztflb53-64 ( for 3 consecutive months): Chronic kidney disease 15 or less: Kidney failureCHRISTUS [facility]ohn [facility]i – SouthGlucose [id number] 04:19:00* Test Item Value Reference Range Interpretation Comments Glucose Level (test code = HZE6697) 105 74-118 [facility] SouthCalcium [id number] 04:19:00* Test Item Value Reference Range Interpretation Comments Calcium Level (test code = 20082-8) 9.5 8.4-10.2 [facility] SouthTotal [id number] 04:19:00* Test Item Value Reference Range Interpretation Comments Total Bilirubin (test code = 1975-2) 0.8 0.2-1.2 [facility] SouthAspartate Amino Transf (AST/SGOT) 2018-05-30 04:19:00* Test Item Value Reference Range Interpretation Comments Aspartate Amino Transf (AST/SGOT) (test code = Aspartate Amino Transf (AST/SGOT)) 16 5-34 [facility] (ALT/SGPT) 2018-05-30 04:19:00* Test Item Value Reference Range Interpretation Comments Alanine Aminotransferase (ALT/SGPT) (test code = 1742-6) 12 0-55 [facility] [id number] 04:19:00* Test Item Value Reference Range Interpretation Comments Total Protein (test code = 2885-2) 6.7 6.5-8.1 [facility]2018-12-[facility] 04:19:00* Test Item Value Reference Range Interpretation Comments Albumin (test code = 1751-7) 3.6 3.5-5.0 [facility]2018-[facility] 04:19:00* Test Item Value Reference Range Interpretation Comments Globulin (test code = 78630-4) 3.1 2.3-3.5 [facility]Globulin [id number] 04:19:00 * Test Item Value Reference Range Interpretation Comments Albumin/Globulin Ratio (test code = 1759-0) 1.2 0.8-2.0 [facility]kaline [id number] 04:19:00* Test Item Value Reference Range Interpretation Comments Alkaline Phosphatase (test code = 6768-6) 57 40-150 [facility]
[2020-04-12 09:45] LABS: CREATINE KINASE MB 1.1 ng/mL (0-5.0)
[2020-04-12] MEDS ORDERED: KEFLEX500 MG PO (09:54)
[2020-04-12 09:56] LABS: CLARITY,URINE SL CLOUDY (CLEAR); COLOR,URINE YELLOW (YELLOW); LEUKOCYTE ESTERASE ,URINE SMALL (NEGATIVE)
[2020-04-12 09:57] LABS: KETONES,URINE NEGATIVE (NEGATIVE); NITRITE,URINE POSITIVE (NEGATIVE); PROTEIN,URINE DIPSTICK 2+ (NEGATIVE)
[2020-04-12 09:58] LABS: URINE UROBILINOGEN 0.2 mg/dL (0.2 - 1)
[2020-04-12 09:59] LABS: BILIRUBIN,URINE NEGATIVE (NEGATIVE)
[2020-04-12] MEDS ORDERED: CEFTRIAXONE SOD 1 GM/NS 50 ML 50 ML IV ONE (10:00)
[2020-04-12 10:16] LABS: BACTERIA,URINE FEW /HPF; EPITHELIAL CELLS,URINE FEW /LPF; RBC,URINE 21-50 /HPF (0-5)
== END 2020-04-12 10:42 | disposition home or self-care (01) ==
LOC: ER 09:15
DX: R31.9 Hematuria, unspecified (principal); Z85.46 Personal history of malignant neoplasm of prostate; I10 Essential (primary) hypertension; N18.9 Chronic kidney disease, unspecified
CPT/HCPCS: 36415; 51702; 80053; 81001; 82550; 82553; 84484; 85025; 87086; 87186; 99283; J0696; 51700

== ENCOUNTER 2021-02-14 12:46 | Inpatient (IN) | payer MEDICARE, BC ==
[~2021-02-14] VITALS: Ht 180.3 cm; Wt 61.2 kg
[~2021-02-14 12:46] MED LIST changes: +KEFLEX500 MG PO
[2021-02-14 13:41] LABS: BASOPHILS # (AUTO) 0.1 (0.0-0.1); BASOPHILS % 1.2 % (0.0-1.0); EOSINOPHILS # (AUTO) 0.5 (0.0-0.4); EOSINOPHILS % 5.8 % (0.0-6.0); HEMATOCRIT 41.3 % (38.2-49.6); LYMPHOCYTES # (AUTO) 1.7 (1.0-3.2); LYMPHOCYTES % 20.6 % (18.0-39.1); MEAN CORPUSCULAR HEMOGLOBIN 29.8 pg (28-32); MEAN CORPUSCULAR HGB CONC 31.5 g/dL (31-35); MEAN CORPUSCULAR VOLUME 94.7 fL (81-99); MONOCYTES # (AUTO) 0.6 (0.2-0.8); NEUTROPHILS # (AUTO) 5.2 (2.1-6.9); NEUTROPHILS % 64.4 % (38.7-80.0); PLATELET COUNT 278 x10e3/uL (140-360); RED BLOOD COUNT 4.36 x10e6/uL (4.3-5.7); RED CELL DISTRIBUTION WIDTH 12.5 % (11.7-14.4)
[2021-02-14 13:51] LABS: INR 0.94; PARTIAL THROMBOPLASTIN TIME 29.3 seconds (23.8-35.5); PROTHROMBIN TIME 12.8 seconds (11.9-14.5)
[2021-02-14 14:01] LABS: ALBUMIN 3.6 g/dL (3.5-5.0); ALBUMIN/GLOBULIN RATIO 1.1 (0.8-2.0); ANION GAP 15.7 mmol/L (8-16); CALCIUM 10.1 mg/dL (8.4-10.2); CREATININE, SERUM 1.65 mg/dL (0.72-1.25); POTASSIUM 3.7 mmol/L (3.5-5.1)
[2021-02-14 14:07] LABS: CREATINE KINASE MB 0.9 ng/mL (0-5.0)
[2021-02-14 15:16] LABS: CLARITY,URINE HAZY (CLEAR); COLOR,URINE YELLOW (YELLOW); KETONES,URINE NEGATIVE (NEGATIVE); LEUKOCYTE ESTERASE ,URINE LARGE (NEGATIVE); NITRITE,URINE POSITIVE (NEGATIVE); PROTEIN,URINE DIPSTICK NEGATIVE (NEGATIVE); URINE UROBILINOGEN 0.2 mg/dL (0.2 - 1)
[2021-02-14 15:17] LABS: AMORPHOUS SEDIMENT,URINE FEW (FEW); BACTERIA,URINE MANY /HPF; EPITHELIAL CELLS,URINE FEW /LPF; HYALINE CASTS 0-1 (0-1); MUCUS,URINE FEW (RARE); WBC,URINE (MAN) >50 /HPF (0-5)
[2021-02-14] MEDS ORDERED: ONDANSETRON HCL INJ 2MG/ML 2ML 2 MG/ML VIAL IV PRN (15:30)
[2021-02-14] MEDS ORDERED: Vancomycin IV 1 GM in SODIUM CHLORIDE 0.9% 250ML 250 ML IV ONE (15:30)
[2021-02-14] MEDS: SODIUM CHLORIDE 0.9% 1000ML 1,000 ML IV SCH (16:57)
[2021-02-14] MEDS: MEROPENEM 1 GM in SODIUM CHLORIDE 0.9% 100 ML IV SCH (16:57)
[2021-02-14] MEDS ORDERED: POLYETHYLENE GLYCOL 3350 17 GM PACK PO PRN (18:45)
[2021-02-14] MEDS ORDERED: HYDRALAZINE HCL 20 MG/ML VIAL IV PRN (18:45)
[2021-02-14 21:26] VITALS: BP 144/89
[2021-02-14] MEDS: DOCUSATE SODIUM 100 MG CAP PO SCH (22:04)
[2021-02-14] MEDS: FAMOTIDINE 20 MG/2 ML VIAL IV SCH (22:04)
[2021-02-14 23:00] VITALS: BP 144/89
[2021-02-15] VITALS (10 sets, daily range): BP systolic 112–172; BP diastolic 72–89
[2021-02-15] MEDS: SODIUM CHLORIDE 0.9% 1000ML 1,000 ML IV SCH (02:44)
[2021-02-15] MEDS: MEROPENEM 1 GM in SODIUM CHLORIDE 0.9% 100 ML IV SCH (04:33)
[2021-02-15 05:48] LABS: BASOPHILS # (AUTO) 0.1 (0.0-0.1); EOSINOPHILS # (AUTO) 0.5 (0.0-0.4); EOSINOPHILS % 7.4 % (0.0-6.0); HEMATOCRIT 34.7 % (38.2-49.6); HEMOGLOBIN 11.1 g/dL (14.0-18.0); LYMPHOCYTES # (AUTO) 1.3 (1.0-3.2); LYMPHOCYTES % 17.9 % (18.0-39.1); MEAN CORPUSCULAR HEMOGLOBIN 29.8 pg (28-32); MEAN CORPUSCULAR VOLUME 93.3 fL (81-99); MONOCYTES # (AUTO) 0.7 (0.2-0.8); MONOCYTES % 9.4 % (4.4-11.3); NEUTROPHILS # (AUTO) 4.5 (2.1-6.9); NEUTROPHILS % 63.7 % (38.7-80.0); PLATELET COUNT 243 x10e3/uL (140-360); RED BLOOD COUNT 3.72 x10e6/uL (4.3-5.7); RED CELL DISTRIBUTION WIDTH 12.2 % (11.7-14.4)
[2021-02-15 06:11] LABS: ALBUMIN 2.9 g/dL (3.5-5.0); ALBUMIN/GLOBULIN RATIO 1.2 (0.8-2.0); ANION GAP 12.5 mmol/L (8-16); CALCIUM 9.2 mg/dL (8.4-10.2); CREATININE, SERUM 1.29 mg/dL (0.72-1.25); POTASSIUM 3.5 mmol/L (3.5-5.1)
[2021-02-15 06:27] LABS: CHOL/HDL RATIO 3.8 (3.9-4.7); MAGNESIUM 1.8 MG/DL (1.3-2.1); PHOSPHORUS 2.7 MG/DL (2.3-4.7)
[2021-02-15 06:47] LABS: THYROID STIMULATING HORMONE 0.712 uIU/mL (0.350-4.940)
[2021-02-15] MEDS: DOCUSATE SODIUM 100 MG CAP PO SCH ×2 (08:48→16:49)
[2021-02-15] MEDS ORDERED: HYDROCHLOROTH12.5 MG PO (12:31)
[2021-02-15] MEDS ORDERED: [UNRECOGNIZED DRUG - OTHER] PO (12:31)
[2021-02-15] MEDS ORDERED: TOLTERODINE TART4 MG PO (12:31)
[2021-02-15] MEDS: MEMANTINE 10 MG TAB PO SCH (20:19)
[2021-02-15] MEDS: ACETAMINOPHEN 325 MG TAB PO PRN (20:19)
[2021-02-15] MEDS: FAMOTIDINE 20 MG/2 ML VIAL IV SCH (20:19)
[2021-02-16] VITALS (8 sets, daily range): BP systolic 126–149; BP diastolic 53–86
[2021-02-16] MEDS: ACETAMINOPHEN 325 MG TAB PO PRN ×2 (03:01→21:39)
[2021-02-16 07:53] LABS: BASOPHILS # (AUTO) 0.1 (0.0-0.1); BASOPHILS % 0.9 % (0.0-1.0); EOSINOPHILS # (AUTO) 0.6 (0.0-0.4); EOSINOPHILS % 6.9 % (0.0-6.0); HEMATOCRIT 35.2 % (38.2-49.6); HEMOGLOBIN 11.8 g/dL (14.0-18.0); LYMPHOCYTES # (AUTO) 1.2 (1.0-3.2); LYMPHOCYTES % 13.4 % (18.0-39.1); MEAN CORPUSCULAR HEMOGLOBIN 30.6 pg (28-32); MEAN CORPUSCULAR HGB CONC 33.5 g/dL (31-35); MEAN CORPUSCULAR VOLUME 91.4 fL (81-99); MONOCYTES # (AUTO) 0.7 (0.2-0.8); MONOCYTES % 7.5 % (4.4-11.3); NEUTROPHILS # (AUTO) 6.2 (2.1-6.9); NEUTROPHILS % 70.8 % (38.7-80.0); PLATELET COUNT 232 x10e3/uL (140-360); RED BLOOD COUNT 3.85 x10e6/uL (4.3-5.7); RED CELL DISTRIBUTION WIDTH 12.5 % (11.7-14.4)
[2021-02-16 08:07] LABS: ANION GAP 16.7 mmol/L (8-16); CALCIUM 9.2 mg/dL (8.4-10.2); CREATININE, SERUM 1.24 mg/dL (0.72-1.25); POTASSIUM 3.7 mmol/L (3.5-5.1)
[2021-02-16] MEDS ORDERED: CEFTRIAXONE 1 GM in SODIUM CHLORIDE 0.9% 50ML 50 ML IV SCH (09:00)
[2021-02-16] MEDS: BALSAM PERU/CASTOR OIL 60 GM OINT...G. TP SCH (09:34)
[2021-02-16] MEDS: DOCUSATE SODIUM 100 MG CAP PO SCH ×2 (09:34→17:16)
[2021-02-16] MEDS: TOLTERODINE TARTRATE 4 MG CAPCR PO SCH (09:34)
[2021-02-16] MEDS: MEMANTINE 10 MG TAB PO SCH ×2 (09:34→21:38)
[2021-02-16] MEDS: MEROPENEM 1 GM in SODIUM CHLORIDE 0.9% 100 ML IV SCH (17:16)
[2021-02-16] MEDS ORDERED: SODIUM CHLORIDE 0.9% 50ML 50 ML ONE (17:21)
[2021-02-16] MEDS: LORAZEPAM INJ 2 MG/ML VIAL IV PRN (18:14)
[2021-02-16] MEDS: FAMOTIDINE 20 MG/2 ML VIAL IV SCH (21:38)
[2021-02-17] VITALS (9 sets, daily range): BP systolic 145–172; BP diastolic 56–95
[2021-02-17] MEDS: MEROPENEM 1 GM in SODIUM CHLORIDE 0.9% 100 ML IV SCH ×3 (01:04→17:20)
[2021-02-17] MEDS: ACETAMINOPHEN 325 MG TAB PO PRN (04:51)
[2021-02-17 05:36] LABS: BASOPHILS # (AUTO) 0.1 (0.0-0.1); BASOPHILS % 1.1 % (0.0-1.0); EOSINOPHILS # (AUTO) 0.7 (0.0-0.4); EOSINOPHILS % 7.6 % (0.0-6.0); HEMATOCRIT 36.9 % (38.2-49.6); HEMOGLOBIN 12.3 g/dL (14.0-18.0); LYMPHOCYTES # (AUTO) 1.4 (1.0-3.2); LYMPHOCYTES % 14.7 % (18.0-39.1); MEAN CORPUSCULAR HEMOGLOBIN 30.2 pg (28-32); MEAN CORPUSCULAR HGB CONC 33.3 g/dL (31-35); MEAN CORPUSCULAR VOLUME 90.7 fL (81-99); MONOCYTES # (AUTO) 0.8 (0.2-0.8); NEUTROPHILS # (AUTO) 6.4 (2.1-6.9); NEUTROPHILS % 68.1 % (38.7-80.0); PLATELET COUNT 251 x10e3/uL (140-360); RED BLOOD COUNT 4.07 x10e6/uL (4.3-5.7); RED CELL DISTRIBUTION WIDTH 12.3 % (11.7-14.4)
[2021-02-17 05:58] LABS: ALBUMIN/GLOBULIN RATIO 1.1 (0.8-2.0); ANION GAP 16.8 mmol/L (8-16); CALCIUM 9.5 mg/dL (8.4-10.2); CREATININE, SERUM 1.31 mg/dL (0.72-1.25); POTASSIUM 3.8 mmol/L (3.5-5.1)
[2021-02-17] MEDS: MEMANTINE 10 MG TAB PO SCH ×2 (09:26→21:50)
[2021-02-17] MEDS: DOCUSATE SODIUM 100 MG CAP PO SCH ×2 (09:26→17:20)
[2021-02-17] MEDS: BALSAM PERU/CASTOR OIL 60 GM OINT...G. TP SCH (09:26)
[2021-02-17] MEDS: TOLTERODINE TARTRATE 4 MG CAPCR PO SCH (09:26)
[2021-02-17] MEDS: FAMOTIDINE 20 MG/2 ML VIAL IV SCH (21:50)
[2021-02-18] VITALS: BP 150/72
[2021-02-18] MEDS: MEROPENEM 1 GM in SODIUM CHLORIDE 0.9% 100 ML IV SCH ×2 (01:11→08:18)
[2021-02-18 05:00] LABS: BASOPHILS # (AUTO) 0.1 (0.0-0.1); BASOPHILS % 0.9 % (0.0-1.0); EOSINOPHILS # (AUTO) 0.7 (0.0-0.4); EOSINOPHILS % 6.4 % (0.0-6.0); HEMATOCRIT 37.1 % (38.2-49.6); HEMOGLOBIN 12.6 g/dL (14.0-18.0); LYMPHOCYTES # (AUTO) 0.9 (1.0-3.2); LYMPHOCYTES % 8.4 % (18.0-39.1); MEAN CORPUSCULAR HEMOGLOBIN 30.1 pg (28-32); MEAN CORPUSCULAR VOLUME 88.8 fL (81-99); MONOCYTES # (AUTO) 0.7 (0.2-0.8); MONOCYTES % 7.1 % (4.4-11.3); NEUTROPHILS % 76.6 % (38.7-80.0); PLATELET COUNT 262 x10e3/uL (140-360); RED BLOOD COUNT 4.18 x10e6/uL (4.3-5.7); RED CELL DISTRIBUTION WIDTH 12.2 % (11.7-14.4)
[2021-02-18 05:22] LABS: ALBUMIN 2.9 g/dL (3.5-5.0); ALBUMIN/GLOBULIN RATIO 0.9 (0.8-2.0); ANION GAP 14.5 mmol/L (8-16); CALCIUM 9.6 mg/dL (8.4-10.2); CREATININE, SERUM 1.29 mg/dL (0.72-1.25); POTASSIUM 3.5 mmol/L (3.5-5.1)
[2021-02-18 07:12] VITALS: BP 170/88
[2021-02-18] MEDS: TOLTERODINE TARTRATE 4 MG CAPCR PO SCH (08:18)
[2021-02-18] MEDS: DOCUSATE SODIUM 100 MG CAP PO SCH (08:18)
[2021-02-18] MEDS: MEMANTINE 10 MG TAB PO SCH (08:18)
[2021-02-18] MEDS: LORAZEPAM INJ 2 MG/ML VIAL IV PRN (08:25)
[2021-02-18 08:27] VITALS: BP 170/88
[2021-02-18] MEDS ORDERED: NIFEDIPINE 10 MG CAP PO STA (10:52)
[2021-02-18 12:00] VITALS: BP 137/69
[2021-02-18 16:41] VITALS: BP 158/103
== END 2021-02-18 20:41 | DRG 698 ==
LOC: ER 12:55 → ERHOLD 15:22 → MED/SURG2 20:33
PROVIDERS: ADMIT Internal Medicine; ATTEND Internal Medicine
DX: T83.518A Infection and inflammatory reaction due to other urinary catheter, initial encounter (principal); G93.41 Metabolic encephalopathy; N39.0 Urinary tract infection, site not specified; N17.9 Acute kidney failure, unspecified; Z68.1 Body mass index [BMI] 19.9 or less, adult; G30.9 Alzheimer's disease, unspecified; F02.80 Dementia in other diseases classified elsewhere, unspecified severity, without behavioral disturbance, psychotic disturbance, mood disturbance, and anxiety; Z74.09 Other reduced mobility; N40.1 Benign prostatic hyperplasia with lower urinary tract symptoms; R33.8 Other retention of urine; E86.0 Dehydration; R62.7 Adult failure to thrive; I12.9 Hypertensive chronic kidney disease with stage 1 through stage 4 chronic kidney disease, or unspecified chronic kidney disease; N18.9 Chronic kidney disease, unspecified; N31.9 Neuromuscular dysfunction of bladder, unspecified; N13.70 Vesicoureteral-reflux, unspecified; Z74.01 Bed confinement status; B96.20 Unspecified Escherichia coli [E. coli] as the cause of diseases classified elsewhere; B96.5 Pseudomonas (aeruginosa) (mallei) (pseudomallei) as the cause of diseases classified elsewhere; B95.2 Enterococcus as the cause of diseases classified elsewhere
CPT/HCPCS: 36415; 51700; 70450; 71045; 71250; 72125; 80048; 80053; 80061; 81001; 82550; 82553; 82948; 83036; 83605; 83735; 84100; 84443; 84484; 85025; 85610; 85730; 87040; 87071; 87086; 87186; 87205; 93005; 97139; 99251; 99285; J0360; J0696; J2060; J2185; J3370; J7030; J7050; U0002